=== PATIENT | male | born 1995 | race Caucasian/White ===

== ENCOUNTER 2022-04-13 03:19 | Emergency (ER) | payer SELFPAY | END 2022-04-13 03:27 | LOC: ERS 03:19 | DX: S01.21XA Laceration without foreign body of nose, initial encounter (principal); F10.129 Alcohol abuse with intoxication, unspecified; Y90.9 Presence of alcohol in blood, level not specified; W19.XXXA Unspecified fall, initial encounter | CPT/HCPCS: 12011 ==